=== PATIENT | male | born 1935 | race African-American/Black ===

== ENCOUNTER 2023-11-25 07:45 | Emergency (ER) | payer OTHER ==
[~2023-11-25] VITALS: Ht 177.8 cm; Wt 80.0 kg
[2023-11-25 07:47] VITALS: O2SAT 96
[2023-11-25 08:19] LABS: CHLORIDE 104 mEq/L (98-107); POTASSIUM 4.6 mEq/L (3.5-5.1); SODIUM 136 mEq/L (136-145)
[2023-11-25 08:20] LABS: CARBON DIOXIDE 23 mEq/L (21-32)
[2023-11-25 08:21] LABS: CALCIUM 9.3 mg/dL (8.7-10.4)
[2023-11-25 08:25] LABS: CREATININE 2.4 mg/dL (0.6-1.3); GLUCOSE 165 mg/dL (70-105)
[2023-11-25 08:26] LABS: UREA NITROGEN BLOOD 25 mg/dL (9-23)
[2023-11-25 08:28] LABS: TROPONIN I HIGH SENSITIVITY 12 ng/L (3.0-53)
[2023-11-25 08:31] LABS: BASOPHILS % 0.8 % (0.0-2.0); EOSINOPHILS % 6.1 % (0.0-5.0); HEMOGLOBIN. 11.2 g/dL (14.0-18.0); LYMPHOCYTES % 15.9 % (20.0-50.0); MEAN CORPUSCULAR HEMOGLOBIN 30.1 pg (28.0-32.0); MEAN CORPUSCULAR HGB CONC 32.1 g/dL (31.0-37.0); MEAN CORPUSCULAR VOLUME 93.9 fL (80.0-94.0); MONOCYTES % 7.8 % (2.0-8.0); NEUTROPHILS % 69.4 % (40.0-76.0); PLATELET 274 x1000/uL (130-400); RED BLOOD CELL COUNT 3.73 mill/uL (4.7-6.1); RED CELL DISTRIBUTION WIDTH 13.5 % (11.6-14.6); WHITE BLOOD COUNT 8.9 x1000/uL (4.5-11.0)
[2023-11-25] MEDS: MORPHINE SULFATE 4 MG/ML INJ (FOR IV/IM USE) IV STA (08:36)
[2023-11-25] MEDS: SODIUM CHLORIDE 0.9% 1,000 ML IV ONE (08:40)
[2023-11-25] MEDS ORDERED: POLY17PO3 PO (11:13)
[2023-11-25] MEDS ORDERED: OXYC-100 MT (11:13)
[2023-11-25 11:39] VITALS: TEMP 98.2
[2023-11-25 13:03] VITALS: BP 130/59; PULSE 81; RESP 14
== END 2023-11-25 13:43 | disposition home or self-care (01) ==
LOC: ER 07:45 → CANBEDREQ 11:30 → ER 13:43
DX: M54.9 Dorsalgia, unspecified (principal); Z86.73 Personal history of transient ischemic attack (TIA), and cerebral infarction without residual deficits; Z85.89 Personal history of malignant neoplasm of other organs and systems
CPT/HCPCS: 99285; 96374; 71045; 96361; 80048; 83880; 85025; 84484; 36415; J2270; J7030